=== PATIENT | female | born 1950 | race Caucasian/White ===

== ENCOUNTER → 2020-10-08 11:40 | Outpatient (CLI) | payer MEDICARE, OTHER, SELFPAY ==
--- NOTE | 2020-10-08 11:56 | DI.RAD.S_ITS ---
PROCEDURE: XR HAND RT MIN 3V INDICATIONS: pain TECHNIQUE: 3 views of the hand(s) acquired. COMPARISON: None. FINDINGS: Bones: There is a mildly displaced spiral fracture of the 4th metacarpal. No dislocations. There are postsurgical changes status post fusion of the 4th distal interphalangeal joint with an associated surgical screw. The surgical hardware appears intact without associated suspicious lucencies. Carpal bones are normally aligned. No suspicious bony lesions. Soft tissues: No suspicious soft tissue calcifications. IMPRESSION: 1. Mildly displaced fracture of the 4th metacarpal. 2. Postsurgical changes status post fusion of the 4th distal interphalangeal joint without definite evidence of hardware failure. Dictated by: Damian Gray M.D. on 10/08/2020 at 12:21 Approved by: Damian Gray M.D. on 10/08/2020 at 12:24
== END ==
PROVIDERS: Referring Provider Physician Assistant; Visit Provider Physician Assistant
DX: S60.221A Contusion of right hand, initial encounter (principal); S62.304A Unspecified fracture of fourth metacarpal bone, right hand, initial encounter for closed fracture; Z98.1 Arthrodesis status; X58.XXXA Exposure to other specified factors, initial encounter
CPT/HCPCS: 73130